=== PATIENT | female | born 1945 | race Caucasian/White ===

== ENCOUNTER 2020-07-25 07:30 | Observation (INO) ==
[2020-07-25] MEDS ORDERED: MORPHINE SULFATE INJ 4 MG IVP ONE (08:00)
[2020-07-25] MEDS ORDERED: MORPHINE SULFATE INJ 2 MG INJ ONE ×2 (08:02→10:15)
--- NOTE | 2020-07-25 08:04 | RAD ---
HISTORYS/P FALL LAST P.M,. LT HIP PAINSTUDYHIP, LEFTCOMPARISONNoneFINDINGSRight superior pubic ramus and parasymphyseal fractures. Left superior and inferior pubic ramus fractures. Large amount of stool throughout the colon.IMPRESSIONBilateral pubic ramus fractures.Electronically signed by: TANMAY VERDUZCO (Jul 25, 2020 08:03:59)
--- NOTE | 2020-07-25 08:34 | DR.EXTPAIN ---
HPI Time seen Time Seen by Provider: 07/25/20 08:07 Complaint/Symptoms Chief Complaint:: PT C/O FALLING AT HOME LAST NIGHT TO THE FLOOR AND HAVING PAIN TO BOTH HER HIPS , PT DRAWING UP LEGS UP UNABLE TO VISUALIZE .. COVID-19 Coronavirus risk:travel/contact w/high risk person: No Has patient experienced Coronavirus symptoms: No Nurses notes reviewed Nurses Notes Review: Yes Source History Provided: Patient Mode of arrival Mode of Arrival: Stretcher Timing Onset of Chief Complaint: 07/25/20 Context History of: None PMH PMH Past Medical History: Yes Past Medical History: Diabetes and Hypertension Past Surgical History: No Family History History of Family Medical Conditions: No Social History Does patient currently use any type of tobacco product: No Have you used tobacco products in the last 12 months: No Type of Tobacco Use: None Does any household member use tobacco: No Alcohol Use: None Do you use any recreational Drugs:: No Lives With: Alone Lives Where: Home Travel Risk Coronavirus risk:travel/contact w/high risk person: No Has patient experienced Coronavirus symptoms: No Infectious screening In the last 2 months have you had wt loss of >10#?: NO Have you had fever, night sweats or hemotysis?: No Have you traveled outside the country in the last 6 months?: No Isolation: Standard ROS Review of Systems Constitutional: No Symptoms Reported Eyes: No Symptoms Reported ENTM: No Symptoms Reported Respiratoy: No Symptoms Reported Cardiovascular: No Symptoms Reported Gastrointestinal/Abdominal: No Symptoms Reported Genitourinary: No Symptoms Reported Neurological: No Symptoms Reported Musculoskeletal: Pelvis (pain bilateral) Integumentary: No Symptoms Reported Hematologic/Lymphatic: No Symptoms Reported Endocrine: No Symptoms Reported Psychiatric: No Symptoms Reported All Other Systems: Reviewed and Negative PE Vital Signs Vitals: Temperature 97.1 F Pulse Rate 86 Respiratory Rate 20 Blood Pressure 127/67 O2 Sat by Pulse Oximetry 95 General Limitations: No Limitations General Appearance: Alert and In No Apparent Distress Head Head Exam: Normal Inspection, Atraumatic and Normocephalic Eyes Eye exam: Normal Appearance and EOMI ENT ENT Exam: Normal Exam and Normal Oropharynx Neck Neck Exam: Normal Inspection and Full ROM Chest Chest Inspection: Normal Inspection Respiratory Respiratory Exam: Normal Lung Sounds Bilat Respiratory Exam: Bilateral: Clear to Auscultation Cardiovascular Cardiovascular Exam: Regular Rate Abdominal Exam Abdominal Exam: Normal Inspection Extremities Extremities Exam: Normal Inspection and Tenderness; negative Full ROM (pain in pelvis with movement) Upper Extremities Shoulder Exam: Normal Inspection Arm Exam: Normal Inspection Elbow Exam: Normal Inspection Forearm Exam: Normal Inspection Lower Extremities Hip/Pelvis Exam: Normal Inspection and Tenderness (pelvic rock positive); negative Full ROM, Swelling, Abrasion, Ecchymosis and Deformity Knee Exam: Normal Inspection Lower Leg Exam: Normal Inspection Ankle Exam: Normal Inspection Neurological Neurological Exam: Alert, Oriented X3 and CN II-XII Intact Psychiatric Psychiatric Exam: Depressed Skin Skin Exam: Normal Color Type of Lesion: negative Rash COURSE Consultation Called: 08:36 Call Returned: 08:36 Consultation Comments: case discussed with DR. Castillo admit for ortho consult and intermediate accountant care. case discussed with DR. Newton recommend pain management and placement for half-way care R[facility] Labs Reviewed Result Diagrams: 07/25/20 08:45 07/25/20 08:45 Opioid Opioid Risk Tool Age (Neftali box if 16-45): No History of Preadolescent Sexual Abuse: No Total: 0 Total Score Risk Category: Low Risk Copyright: Rex DIXON predicting aberrant behaviors
[2020-07-25 09:00] LABS: BASOPHILS % (AUTO) 0.2 % (0.2-1.0); HEMOGLOBIN 9.6 g/dL (12.0-16.0); LYMPHOCYTES # (AUTO) 0.8 X10^3/uL (1.3-2.9); LYMPHOCYTES % (AUTO) 4.1 % (21.0-51.0); MEAN CORPUSCULAR HGB CONC 31.9 g/dL (33.0-35.0); MEAN CORPUSCULAR VOLUME 75.3 fL (80.0-100.0); MEAN PLATELET VOLUME 7.8 fL (7.4-11.0); MONOCYTES # (AUTO) 0.8 x10^3/uL (0.3-0.8); MONOCYTES % (AUTO) 4.1 % (0.0-13.0); NEUTROPHILS # (AUTO) 17.7 x10^3/uL (2.2-4.8); NEUTROPHILS % (AUTO) 91.6 % (42.0-75.0); PLATELET COUNT 542 X10^3/uL (150.0-450.0); RED BLOOD COUNT 3.99 X10^6/uL (3.5-5.4); RED CELL DISTRIBUTION WIDTH 18.5 % (11.6-16.5); WHITE BLOOD COUNT 19.3 X10^3/uL (3.6-10.0)
[2020-07-25 09:07] LABS: ALANINE AMINOTRANSFERASE 21 Units/L (12-78); ALBUMIN 2.8 g/dL (3.4-5.0); ALKALINE PHOSPHATASE 88 Units/L (46-116); ASPARTATE AMINO TRANSFERASE 23 Units/L (15-37); BLOOD UREA NITROGEN 11 mg/dL (7-18); CALCIUM 8.7 mg/dL (8.5-10.1); CARBON DIOXIDE 27.5 mmol/L (21-32); CHLORIDE 102 mmol/L (98-107); COR CA(FOR HYPOALB) 9.7 mg/dL (8.5-10.1); COR NA(FOR HYPERGLY) 138 mmol/L (136-145); CREATININE 0.63 mg/dL (0.55-1.02); SODIUM 137 mmol/L (136-145); TOTAL PROTEIN 7.1 g/dL (6.4-8.2); eGFR NON BLACK RACES > 60 (>60)
[2020-07-25] MEDS ORDERED: POTASSIUM CHLORIDE LIQ 20 MEQ UDC PO ONE (09:21)
--- NOTE | 2020-07-25 09:24 | DR.EXTPAIN ---
HPI Time seen Time Seen by Provider: 07/25/20 08:07 Complaint/Symptoms Chief Complaint:: PT C/O FALLING AT HOME LAST NIGHT TO THE FLOOR AND HAVING PAIN TO BOTH HER HIPS , PT DRAWING UP LEGS UP UNABLE TO VISUALIZE .. COVID-19 Coronavirus risk:travel/contact w/high risk person: No Has patient experienced Coronavirus symptoms: No Source History Provided: Patient Mode of arrival Mode of Arrival: Stretcher Timing Onset of Chief Complaint: 07/25/20 PMH PMH Past Medical History: Yes Past Medical History: Diabetes and Hypertension Past Medical History Comment: CVA LINT RECORDER Past Surgical History: No Family History History of Family Medical Conditions: No Social History Does patient currently use any type of tobacco product: No Have you used tobacco products in the last 12 months: No Type of Tobacco Use: None Does any household member use tobacco: No Alcohol Use: None Do you use any recreational Drugs:: No Lives With: Alone Lives Where: Home Travel Risk Coronavirus risk:travel/contact w/high risk person: No Has patient experienced Coronavirus symptoms: No Infectious screening In the last 2 months have you had wt loss of >10#?: NO Have you had fever, night sweats or hemotysis?: No Have you traveled outside the country in the last 6 months?: No Isolation: Standard PE Vital Signs Vitals: Temperature 97.1 F Pulse Rate 82 Respiratory Rate 20 Blood Pressure 119/57 O2 Sat by Pulse Oximetry 98 ROR Labs Reviewed Result Diagrams: 07/25/20 08:45 07/25/20 08:45 Laboratory: WBC 19.3 X10^3/uL (3.6-10.0) H 07/25/20 08:45 RBC 3.99 X10^6/uL (3.5-5.4) 07/25/20 08:45 Hgb 9.6 g/dL (12.0-16.0) L 07/25/20 08:45 Hct 30.0 % (36.0-47.0) L 07/25/20 08:45 MCV 75.3 fL (80.0-100.0) L 07/25/20 08:45 MCH 24.0 pg (27.0-34.0) L 07/25/20 08:45 MCHC 31.9 g/dL (33.0-35.0) L 07/25/20 08:45 RDW 18.5 % (11.6-16.5) H 07/25/20 08:45 Plt Count 542 X10^3/uL (150.0-450.0) H 07/25/20 08:45 MPV 7.8 fL (7.4-11.0) 07/25/20 08:45 Neut % (Auto) 91.6 % (42.0-75.0) H 07/25/20 08:45 Lymph % (Auto) 4.1 % (21.0-51.0) L 07/25/20 08:45 [place] % (Auto) 4.1 % (0.0-13.0) 07/25/20 08:45 Eos % (Auto) 0.0 % (0.9-2.9) L 07/25/20 08:45 Baso % (Auto) 0.2 % (0.2-1.0) 07/25/20 08:45 Neut # (Auto) 17.7 x10^3/uL (2.2-4.8) H 07/25/20 08:45 Lymph # (Auto) 0.8 X10^3/uL (1.3-2.9) L 07/25/20 08:45 [place] # (Auto) 0.8 x10^3/uL (0.3-0.8) 07/25/20 08:45 Eos # (Auto) 0.0 x10^3/uL (0.0-0.2) 07/25/20 08:45 Baso # (Auto) 0.0 X10^3/uL (0.0-0.1) 07/25/20 08:45 Absolute Nucleated RBC 0.0 /100WBC 07/25/20 08:45 Sodium 137 mmol/L (136-145) 07/25/20 08:45 Corrected Sodium 138 mmol/L (136-145) 07/25/20 08:45 Potassium 3.2 mmol/L (3.5-5.1) L 07/25/20 08:45 Chloride 102 mmol/L (98-107) 07/25/20 08:45 Carbon Dioxide 27.5 mmol/L (21-32) 07/25/20 08:45 BUN 11 mg/dL (7-18) 07/25/20 08:45 Creatinine 0.63 mg/dL (0.55-1.02) 07/25/20 08:45 Est GFR (MDRD) Af Amer > 60 (>60) 07/25/20 08:45 Est GFR (MDRD) Non-Af > 60 (>60) 07/25/20 08:45 Glucose 145 mg/dL (65-99) H 07/25/20 08:45 Calcium 8.7 mg/dL (8.5-10.1) 07/25/20 08:45 Corrected Calcium 9.7 mg/dL (8.5-10.1) 07/25/20 08:45 Total Bilirubin 0.40 mg/dL (0.2-1.0) 07/25/20 08:45 AST 23 Units/L (15-37) 07/25/20 08:45 ALT 21 Units/L (12-78) 07/25/20 08:45 Alkaline Phosphatase 88 Units/L (46-116) 07/25/20 08:45 Total Protein 7.1 g/dL (6.4-8.2) 07/25/20 08:45 Albumin 2.8 g/dL (3.4-5.0) L 07/25/20 08:45 Globulin 4.3 g/dL (2.5-4.5) 07/25/20 08:45 Albumin/Globulin Ratio 0.7 Ratio (1.1-2.1) L 07/25/20 08:45 Opioid Opioid Risk Tool Age (Neftali box if 16-45): No History of Preadolescent Sexual Abuse: No Total: 0 Total Score Risk Category: Low Risk Copyright: Rex DIXON predicting aberrant behaviors
[2020-07-25 09:26] LABS: BAND NEUTROPHILS % 4 % (0-10)
[2020-07-25 09:31] LABS: ANISOCYTOSIS SLIGHT; HYPOCHROMASIA SLIGHT; PLATELET MORPHOLOGY COMMENT NORMAL (NORMAL)
[2020-07-25] MEDS ORDERED: K-DUR TAB 20 MEQ PO ONE (09:34)
[2020-07-25] MEDS: K-DUR TAB 20 MEQ PO SCH (09:46)
[2020-07-25 09:53] LABS: BILIRUBIN,URINE NEGATIVE (NEGATIVE); BLOOD/HEMOGLOBIN,URINE NEGATIVE (NEGATIVE); GLUCOSE, URINE NEGATIVE (NEGATIVE); KETONES,URINE NEGATIVE (NEGATIVE); LEUKOCYTE ESTERASE ,URINE 3+ (NEGATIVE); NITRITES,URINE NEGATIVE (NEGATIVE); PROTEIN,URINE 1+ (NEGATIVE); UROBILINOGEN,URINE NORMAL (NORMAL)
[2020-07-25] MEDS ORDERED: MORPHINE SULFATE INJ 2 MG INJ IVP ONE (10:15)
[2020-07-25 10:28] LABS: APPEARANCE,URINE HAZY (CLEAR); COLOR,URINE YELLOW (YELLOW)
[2020-07-25 10:29] LABS: BACTERIA,URINE TRACE /HPF (NEGATIVE); RBC,URINE 0-2 /HPF (0-3); SQUAMOUS EPITHELIAL CELL,UR FEW /HPF (NEGATIVE)
[2020-07-25 11:28] LABS: CKMB % 11.3 % (<4); CREATINE KINASE 53 Units/L (26-192); TROPONIN I < 0.02 ng/mL (0-1.5)
[2020-07-25] MEDS ORDERED: ELIQUIS PO SCH (11:37)
[2020-07-25] MEDS ORDERED: VALIUM PO ONE (11:46)
[2020-07-25] MEDS ORDERED: NS 1000 ML 1,000 ML IV SCH (12:00)
--- NOTE | 2020-07-25 12:04 | CT ---
HISTORYFX PUBIC RAMUS, FALLSTUDYPELVIS W/O CONCOMPARISONNoneTECHNIQUECT bony pelvis without contrast with sagittal and coronal reformats.Dose reduction techniques including Automated Exposure Control (AEC) and adjustment of mA and kV were utilized.FINDINGSMildly displaced fracture of the left superior pubic ramus acetabular junction. Comminuted left inferior pubic ramus fracture. Mildly displaced fracture of the right superior and inferior pubic rami at the pubic symphysis. Vertically-oriented fracture through the left sacral ala. Bones are osteopenic. Femoral acetabular joints appear anatomic. Garcia catheter in situ. Mild hemorrhage in the pelvis.IMPRESSIONFractures of the right superior and inferior pubic rami at the pubic symphysis. Left inferior pubic ramus and left superior pubic acetabular junction fracture. Left sacral ala fracture. Mild amount of hemorrhage in the dependent left hemipelvis and in the space of retzius anteriorly.Electronically signed by: Donny Manzano (Jul 25, 2020 12:03:36)
--- NOTE | 2020-07-25 12:33 | RAD ---
Chest AP portableIndication: Weakness and dyspneaFINDINGSLeft lung is clear. Loop recorder device projects over the left chest. Heart size is normal. Lungs are hyperinflated. Heart size is prominent with fullness at the right paratracheal region and at the right hilum. Right lower lung atelectasis suspected, with hilar mass possible. CT chest follow-up will be neededIMPRESSION1. Abnormal right lower lung opacity, right hilar opacity and right paratracheal fullness is concerning for underlying neoplasia. CT chest follow-up will be needed2. COPD likely. Heart size is prominent.Electronically signed by: GILBERT CARTER (Jul 25, 2020 12:33:05)
[2020-07-25 13:21] LABS: CKMB % 11.7 % (<4); CREATINE KINASE 47 Units/L (26-192); TROPONIN I < 0.02 ng/mL (0-1.5)
[2020-07-25 13:25] LABS: CREATINE KINASE MB 5.5 ng/mL (0-4.0)
--- NOTE | 2020-07-25 14:45 | DR.H&P ---
H&P - History & Physical for Day of: H&P Date: 07/25/20 - Chief Complaint Chief Complaint: FALL, BILATERAL HIP PAIN - History of Present Illness History of Present Illness: PT IS 74 WF ER ADMISSION WITH CO FALLING LAST PM WITH INTRACTABLE BILATERAL HIP PAIN, CANNOT BEAR WEIGHT. PT REPORTS SHE SLIPPED. PT DENIES ANY "SYNCOPE". PT HAS PMH OF RECENT INCREASED WEAKNESS. 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 PT HAD IMPLANTED LOOP RECORDER. PT'S DAUGHTER REPORTS PT IS PREVIOUS SMOKER, DM ON ORAL MEDICATION AND RECENT CARDIAC CHECK UP WITHOUT ATRIAL FIBRILLATION. PT HAS COPD WITHOUT RESP FAILURE OR USE OF NEBULIZERS OR HOME O2. PT HAD XRAY IN ER REVEALING BILATERAL PELVIC FRACTURES. PT ADMITTED FOR TREATMENT AND EVALUATION OF ACUTE ILLNESS. - Past Medical History Past Medical History: CVA, Diabetes, Hypertension - Past Surgical History Surgical History: Cholecystectomy, Hysterectomy, Tonsillectomy - Family History Family Medical History: Diabetes Mellitus, Coronary Artery Disease - Social History Does patient currently use any type of tobacco product: No Have you used tobacco products in the last 12 months: Yes Type of Tobacco Use: Cigarettes Does any household member use tobacco: No Alcohol Use: None Drug Use: None - Medications Home Medications: Sulfa (Sulfonamide Antibiotics) [SULFA] Allergy (Verified 07/25/20 09:59) sulfamethoxazole [From Bactrim] Allergy (Verified 07/25/20 07:37) trimethoprim [From Bactrim] Allergy (Verified 07/25/20 07:37) CONTINUE taking the following medications apixaban [Eliquis] 5 mg PO BID 07/25/20 [History] aspirin [Aspir-81] 81 mg PO DAILY 07/25/20 [History] megestrol 40 mg PO BID 07/25/20 [History] metformin 500 mg PO BID 07/25/20 [History] metoprolol succinate 50 mg PO DAILY 07/25/20 [History] pravastatin 20 mg PO HS 07/25/20 [History] - Review of Systems Constitutional: Weakness, Malaise Eyes: No Symptoms Reported ENT: No Symptoms Reported Respiratory: No Symptoms Reported Cardiovascular: No Symptoms Reported Gastrointestinal: No Symptoms Reported Genitourinary: No Symptoms Reported Musculoskeletal: Back Pain, Leg Pain Skin: No Symptoms Reported Neurological: Weakness. denies: Numbness, Change in Speech, Confusion, Seizures - Physical Exam Vital Signs: Temperature 97.8 F Pulse Rate [Right Brachial] 88 Pulse Rate 79 Respiratory Rate 20 Blood Pressure [Right Arm] 134/72 Blood Pressure 108/61 O2 Sat by Pulse Oximetry 96 Oriented: Normal Eyes: Normal Ear: Normal Nose: Normal Throat: Dry Respiratory: RLL Diminished, LLL Diminished Cardiovascular: Normal, Other (IMPLANTED LOOP RECORDER, TEMPORARY FOOD SERVICE SALES REPRESENTATIVES) : Normal Auscultation: Bowel Sounds: Normal Palpation: Normal Tenderness: Suprapubic, Mild Skin: Decreased Turgur Musculoskeletal: Right, Left, Hip, Thigh, Back:Thoracic Psychiatric: Anxiety Mood Description: Anxious Affect: Anxious Speech Pattern: Clear, Appropriate - Assessment/Plan (1) Bilateral pubic rami fractures Status: Acute Plan: ADMIT, ORTHO CONSULTATION. PAIN CONTROL, GENTLE IV HYDRATION. BLOOD AND URINE CULTURE, RAPID COVID -. CXR AND EKG ON ADMISISON. CT CHEST DUE TO ABNORMAL CT FINDINGS, OCCULT STOOL. RESP CONSULTATION, VERIFY HOME MEDICATIONS. BS CONTROL (2) Leukocytosis Status: Acute (3) UTI (urinary tract infection) Status: Acute (4) History of CVA (cerebrovascular accident) Status: Acute (5) Diabetes Status: Acute (6) Lung mass Status: Acute - Allergies Allergies/Adverse Reactions: Allergies Allergy/AdvReac Type Severity Reaction Status Date / Time Sulfa (Sulfonamide Allergy Verified 07/25/20 09:59 Antibiotics) [SULFA] sulfamethoxazole Allergy Verified 07/25/20 07:37 [From Bactrim] trimethoprim [From Bactrim] Allergy Verified 07/25/20 07:37
[2020-07-25] MEDS ORDERED: ZANAFLEX PO PRN (14:49)
[2020-07-25] MEDS: PROTONIX INJ 40 MG VIAL IVP SCH (15:10)
[2020-07-25] MEDS: ROCEPHIN VIAL 1 GRAM 1 G in NS 100 ML IV + SPIKE MINIBAG* 100 ML IV SCH (15:20)
[2020-07-25] MEDS ORDERED: PROVENTIL NEB TX 0.083% 2.5MG/ 3ML NEB PRN (16:00)
[2020-07-25] MEDS ORDERED: PROVENTIL NEB TX 0.083% 2.5MG/ 3ML ONE (16:19)
[2020-07-25 17:45] LABS: BASOPHILS % (AUTO) 0.2 % (0.2-1.0); HEMATOCRIT 23.9 % (36.0-47.0); HEMOGLOBIN 7.9 g/dL (12.0-16.0); LYMPHOCYTES # (AUTO) 0.8 X10^3/uL (1.3-2.9); LYMPHOCYTES % (AUTO) 9.9 % (21.0-51.0); MEAN CORPUSCULAR HEMOGLOBIN 24.6 pg (27.0-34.0); MEAN CORPUSCULAR HGB CONC 32.9 g/dL (33.0-35.0); MEAN CORPUSCULAR VOLUME 74.7 fL (80.0-100.0); MEAN PLATELET VOLUME 7.5 fL (7.4-11.0); MONOCYTES # (AUTO) 0.5 x10^3/uL (0.3-0.8); MONOCYTES % (AUTO) 6.6 % (0.0-13.0); NEUTROPHILS # (AUTO) 6.4 x10^3/uL (2.2-4.8); NEUTROPHILS % (AUTO) 83.3 % (42.0-75.0); PLATELET COUNT 415 X10^3/uL (150.0-450.0); RED CELL DISTRIBUTION WIDTH 19.1 % (11.6-16.5); WHITE BLOOD COUNT 7.7 X10^3/uL (3.6-10.0)
[2020-07-25 17:53] LABS: HYPOCHROMASIA SLIGHT; MICROCYTOSIS SLIGHT; PLATELET MORPHOLOGY COMMENT NORMAL (NORMAL)
[2020-07-25 18:20] LABS: CKMB % 12.2 % (<4); CREATINE KINASE 37 Units/L (26-192); TROPONIN I < 0.02 ng/mL (0-1.5)
[2020-07-25 18:22] LABS: CREATINE KINASE MB 4.5 ng/mL (0-4.0)
[2020-07-25] MEDS ORDERED: PRAVACHOL PO ONE (19:31)
[2020-07-25] MEDS ORDERED: MIRALAX POWDER (1 DOSE 17 G) ONE (19:50)
[2020-07-25] MEDS: MIRALAX POWDER (1 DOSE 17 G) PO SCH (20:49)
[2020-07-25] MEDS: PRAVACHOL PO SCH (20:49)
[2020-07-25] MEDS: MORPHINE SULFATE INJ 2 MG INJ IVP PRN (20:50)
[2020-07-25 22:22] LABS: EOSINOPHILS % (AUTO) 0.3 % (0.9-2.9); NEUTROPHILS # (AUTO) 5.7 x10^3/uL (2.2-4.8)
[2020-07-25 22:37] LABS: BASOPHILS % (AUTO) 0.2 % (0.2-1.0); HEMATOCRIT 24.2 % (36.0-47.0); LYMPHOCYTES # (AUTO) 1.1 X10^3/uL (1.3-2.9); LYMPHOCYTES % (AUTO) 14.2 % (21.0-51.0); MEAN CORPUSCULAR HEMOGLOBIN 24.6 pg (27.0-34.0); MEAN CORPUSCULAR HGB CONC 32.9 g/dL (33.0-35.0); MEAN CORPUSCULAR VOLUME 74.6 fL (80.0-100.0); MEAN PLATELET VOLUME 7.5 fL (7.4-11.0); MONOCYTES # (AUTO) 0.6 x10^3/uL (0.3-0.8); MONOCYTES % (AUTO) 8.3 % (0.0-13.0); PLATELET COUNT 407 X10^3/uL (150.0-450.0); RED BLOOD COUNT 3.24 X10^6/uL (3.5-5.4); RED CELL DISTRIBUTION WIDTH 19.2 % (11.6-16.5); WHITE BLOOD COUNT 7.4 X10^3/uL (3.6-10.0)
[2020-07-25 22:53] LABS: HYPOCHROMASIA SLIGHT; MICROCYTOSIS SLIGHT; PLATELET MORPHOLOGY COMMENT NORMAL (NORMAL)
[2020-07-26 01:15] LABS: CKMB % 12.6 % (<4); CREATINE KINASE 35 Units/L (26-192); TROPONIN I < 0.02 ng/mL (0-1.5)
[2020-07-26 01:16] LABS: CREATINE KINASE MB 4.4 ng/mL (0-4.0)
[2020-07-26 06:11] LABS: BASOPHILS % (AUTO) 0.2 % (0.2-1.0); EOSINOPHILS % (AUTO) 0.3 % (0.9-2.9); HEMATOCRIT 24.7 % (36.0-47.0); HEMOGLOBIN 8.2 g/dL (12.0-16.0); MEAN CORPUSCULAR HEMOGLOBIN 24.9 pg (27.0-34.0); MEAN CORPUSCULAR HGB CONC 33.3 g/dL (33.0-35.0); MEAN CORPUSCULAR VOLUME 74.9 fL (80.0-100.0); MEAN PLATELET VOLUME 7.7 fL (7.4-11.0); MONOCYTES # (AUTO) 0.5 x10^3/uL (0.3-0.8); MONOCYTES % (AUTO) 7.4 % (0.0-13.0); NEUTROPHILS # (AUTO) 5.3 x10^3/uL (2.2-4.8); NEUTROPHILS % (AUTO) 78.1 % (42.0-75.0); PLATELET COUNT 409 X10^3/uL (150.0-450.0); WHITE BLOOD COUNT 6.8 X10^3/uL (3.6-10.0)
[2020-07-26 06:20] LABS: BLOOD UREA NITROGEN 8 mg/dL (7-18); CALCIUM 8.3 mg/dL (8.5-10.1); CARBON DIOXIDE 26.1 mmol/L (21-32); CHLORIDE 101 mmol/L (98-107); COR NA(FOR HYPERGLY) 135 mmol/L (136-145); CREATININE 0.59 mg/dL (0.55-1.02); SODIUM 134 mmol/L (136-145); eGFR NON BLACK RACES > 60 (>60)
[2020-07-26] MEDS ORDERED: K-DUR TAB 20 MEQ PO PRN (06:34)
[2020-07-26] MEDS ORDERED: POTASSIUM CHLORIDE LIQ 20 MEQ UDC PO PRN (06:34)
[2020-07-26] MEDS ORDERED: POTASSIUM CHL 40 MEQ/NS 0.45% 500 ML IV PRN (06:34)
[2020-07-26] MEDS ORDERED: MICRO K EXTEN CAP 10 MEQ PO PRN (06:34)
[2020-07-26] MEDS ORDERED: K-RIDER 10 MEQ/NS 100 ML 10 MEQ/100 ML BAG IV PRN (06:34)
[2020-07-26] MEDS ORDERED: POTASSIUM CHL 60 MEQ/NS 0.45% 500 ML IV PRN (06:34)
[2020-07-26] MEDS ORDERED: KLOR-CON PO PRN (06:34)
[2020-07-26 06:38] LABS: MICROCYTOSIS SLIGHT; PLATELET MORPHOLOGY COMMENT NORMAL (NORMAL)
[2020-07-26] MEDS: K-DUR TAB 20 MEQ PO SCH ×2 (09:06→10:32)
[2020-07-26] MEDS: TOPROL XL PO SCH ×2 (09:12→10:30)
[2020-07-26] MEDS: ROCEPHIN VIAL 1 GRAM 1 G in NS 100 ML IV + SPIKE MINIBAG* 100 ML IV SCH (09:17)
[2020-07-26] MEDS: PROTONIX INJ 40 MG VIAL IVP SCH (09:22)
[2020-07-26] MEDS ORDERED: INFeD or DEXFERRUM 25 MG in NS 100 ML IV 100 ML IV NR (11:00)
[2020-07-26] MEDS ORDERED: INFeD or DEXFERRUM 975 MG in NS 500 ML IV 500 ML IV NR (12:00)
[2020-07-26 12:24] LABS: BASOPHILS % (AUTO) 0.3 % (0.2-1.0); EOSINOPHILS % (AUTO) 0.3 % (0.9-2.9); HEMATOCRIT 20.3 % (36.0-47.0); LYMPHOCYTES # (AUTO) 0.7 X10^3/uL (1.3-2.9); LYMPHOCYTES % (AUTO) 8.3 % (21.0-51.0); MEAN CORPUSCULAR HEMOGLOBIN 24.8 pg (27.0-34.0); MEAN CORPUSCULAR HGB CONC 32.9 g/dL (33.0-35.0); MEAN CORPUSCULAR VOLUME 75.5 fL (80.0-100.0); MEAN PLATELET VOLUME 7.7 fL (7.4-11.0); MONOCYTES # (AUTO) 0.7 x10^3/uL (0.3-0.8); MONOCYTES % (AUTO) 8.2 % (0.0-13.0); NEUTROPHILS # (AUTO) 6.7 x10^3/uL (2.2-4.8); NEUTROPHILS % (AUTO) 82.9 % (42.0-75.0); PLATELET COUNT 332 X10^3/uL (150.0-450.0); RED BLOOD COUNT 2.69 X10^6/uL (3.5-5.4); WHITE BLOOD COUNT 8.1 X10^3/uL (3.6-10.0)
[2020-07-26 12:28] LABS: HEMOGLOBIN 6.7 g/dL (12.0-16.0)
[2020-07-26] MEDS ORDERED: NS 250 ML IV 250 ML IV SCH (12:30)
[2020-07-26 12:33] LABS: PLATELET MORPHOLOGY COMMENT NORMAL (NORMAL)
[2020-07-26 12:35] LABS: ANISOCYTOSIS 1+; HYPOCHROMASIA 1+
[2020-07-26] MEDS ORDERED: NS 500 ML IV 500 ML IV ONE (12:55)
[2020-07-26] MEDS ORDERED: TYLENOL 325 MG TAB PO PRN (12:55)
[2020-07-26] MEDS ORDERED: BENADRYL INJ 50 MG VIAL IVP PRN (12:55)
[2020-07-26] MEDS: NS 1000 ML 1,000 ML IV SCH (13:00)
[2020-07-26 15:05] VITALS: BMI 17.5
[2020-07-26] MEDS: PRAVACHOL PO SCH (20:42)
[2020-07-26] MEDS: MIRALAX POWDER (1 DOSE 17 G) PO SCH (20:42)
[2020-07-26] MEDS ORDERED: NS 250 ML IV 250 ML IV ONE (22:36)
[2020-07-27] MEDS: NS 1000 ML 1,000 ML IV SCH ×3 (02:18→18:01)
[2020-07-27 04:57] LABS: BILIRUBIN,URINE NEGATIVE (NEGATIVE); BLOOD/HEMOGLOBIN,URINE NEGATIVE (NEGATIVE); GLUCOSE, URINE NEGATIVE (NEGATIVE); KETONES,URINE NEGATIVE (NEGATIVE); LEUKOCYTE ESTERASE ,URINE NEGATIVE (NEGATIVE); NITRITES,URINE NEGATIVE (NEGATIVE); PROTEIN,URINE NEGATIVE (NEGATIVE); UROBILINOGEN,URINE NORMAL (NORMAL)
[2020-07-27 05:01] LABS: APPEARANCE,URINE CLEAR (CLEAR); COLOR,URINE STRAW (YELLOW)
[2020-07-27 06:10] LABS: BASOPHILS % (AUTO) 0.2 % (0.2-1.0); EOSINOPHILS % (AUTO) 0.6 % (0.9-2.9); HEMATOCRIT 26.6 % (36.0-47.0); LYMPHOCYTES # (AUTO) 0.9 X10^3/uL (1.3-2.9); LYMPHOCYTES % (AUTO) 10.2 % (21.0-51.0); MEAN CORPUSCULAR HEMOGLOBIN 25.7 pg (27.0-34.0); MEAN CORPUSCULAR HGB CONC 33.8 g/dL (33.0-35.0); MEAN CORPUSCULAR VOLUME 75.9 fL (80.0-100.0); MEAN PLATELET VOLUME 8.2 fL (7.4-11.0); MONOCYTES # (AUTO) 0.5 x10^3/uL (0.3-0.8); MONOCYTES % (AUTO) 6.1 % (0.0-13.0); NEUTROPHILS # (AUTO) 7.1 x10^3/uL (2.2-4.8); NEUTROPHILS % (AUTO) 82.9 % (42.0-75.0); PLATELET COUNT 445 X10^3/uL (150.0-450.0); RED CELL DISTRIBUTION WIDTH 19.3 % (11.6-16.5); WHITE BLOOD COUNT 8.5 X10^3/uL (3.6-10.0)
[2020-07-27 06:42] LABS: PLATELET MORPHOLOGY COMMENT NORMAL (NORMAL)
[2020-07-27 06:43] LABS: ALBUMIN 2.3 g/dL (3.4-5.0); ALKALINE PHOSPHATASE 105 Units/L (46-116); BLOOD UREA NITROGEN 5 mg/dL (7-18); CALCIUM 8.2 mg/dL (8.5-10.1); CARBON DIOXIDE 23.8 mmol/L (21-32); CHLORIDE 99 mmol/L (98-107); COR CA(FOR HYPOALB) 9.6 mg/dL (8.5-10.1); COR NA(FOR HYPERGLY) 136 mmol/L (136-145); CREATININE 0.66 mg/dL (0.55-1.02); HYPOCHROMASIA SLIGHT; SODIUM 135 mmol/L (136-145); TOTAL PROTEIN 6.7 g/dL (6.4-8.2); eGFR NON BLACK RACES > 60 (>60)
[2020-07-27 07:05] LABS: ALANINE AMINOTRANSFERASE 20 Units/L (12-78); ASPARTATE AMINO TRANSFERASE 29 Units/L (15-37)
[2020-07-27] MEDS: MORPHINE SULFATE INJ 2 MG INJ IVP PRN (07:29)
[2020-07-27] MEDS: TOPROL XL PO SCH (08:44)
[2020-07-27] MEDS: PROTONIX INJ 40 MG VIAL IVP SCH (08:45)
[2020-07-27] MEDS: K-DUR TAB 20 MEQ PO SCH (08:45)
[2020-07-27] MEDS: ROCEPHIN VIAL 1 GRAM 1 G in NS 100 ML IV + SPIKE MINIBAG* 100 ML IV SCH (08:45)
--- NOTE | 2020-07-27 10:08 | CT ---
HISTORYFall, pelvic fractures, lung opacity on x-raySTUDYCT chest, abdomen and pelvis with IV contrastCOMPARISONChest x-ray 07/25/2020TECHNIQUEMultiple axial images of the chest, abdomen and pelvis were obtained from the lung apices to the pubic symphysis after the administration of IV contrast. 75 cc Omnipaque 350 IV contrast. Dose reduction techniques including Automated Exposure Control (AEC) and adjustment of mA and kV were utilized.FINDINGSBullae and blebs are seen in the lung apices. There is a large mass in the mediastinum located anterior to the anali. It measures 6.5 x 5.0 cm at the anali. It has mass effect upon the lower trachea and mainstem bronchi which are narrowed. Mass appears to extend inferiorly and laterally into the right hilum and right lower lobe of the lungs. The mass measures approximately 6.8 x 5.2 cm at the level of the right main pulmonary artery. There is narrowing of right pulmonary artery branches in the right lower lobe of the lungs. Associated atelectasis is present in the right lower lobe and there is a small right pleural effusion.In the inferior right upper lobe there is ground-glass nodular focus measuring 1.5 by 1.0 cm. This could possibly be spread of malignancy but could be mild atelectasis. Minimal atelectasis is seen dependently in the left lower lobe. Sub mm subpleural left lower lobe lung nodule is seen on image 45 of series 5. Probable scarring is seen in both lung apices. No pneumothorax is seen. There is another small slightly nodular density seen in the right perihilar region anteriorly and inferiorly in the right middle lobe. This measures approximately 7 x 3 mm and could be metastatic disease.Heart and thoracic aorta are normal in size. Abdominal aorta is normal in size with mild diffuse calcifications. No suspicious hepatic lesion is seen. Normal variant diminished enhancement is seen in the bare area of the liver. Prior cholecystectomy with mild pneumobilia. No pancreatic lesion is seen. Spleen is normal in size. No adrenal nodules are seen. Likely benign cysts are seen in both kidneys. Urinary bladder is decompressed with a Garcia catheter. Small amount of urine and excreted contrast is seen in the urinary bladder without evidence of contrast extravasation. Trace free pelvic fluid is low in density.Moderate constipation is seen in the rectosigmoid colon and ascending colon. Normal appendix is seen. Mildly displaced fracture of the body of the right pubic bone is seen with nondisplaced fracture of the right inferior pubic ramus. There is moderately displaced fracture of the left inferior pubic ramus. Bones appear osteopenic. There is nondisplaced fracture of the anterior column of the left acetabulum. No femoral neck fracture or hip dislocation is seen. There is fracture of the left sacral ala that is nondisplaced. No widening of the symphysis pubis or SI joints is seen. No thoracic or lumbar compression fracture is seen. Likely disc bulges at L2-3, L3-4, and L4-5.IMPRESSIONProbable primary lung cancer in the right lower lobe extending into the hilum and mediastinum. There is associated atelectasis of the right lower lobe and small right pleural effusion.Ground-glass focus and another tiny nodular focus are seen in the right lung with tiny nodule in the left lung. Metastatic disease is not excluded.No metastatic disease is seen in the abdomen or pelvis.Multiple pelvic fractures are seen.Moderate constipation.Electronically signed by: Eugene Brito (Jul 27, 2020 10:07:20)
[2020-07-27] MEDS ORDERED: PERCOCET TAB 5/325 MG PO PRN (10:18)
--- NOTE | 2020-07-27 11:49 | CT ---
HISTORYhx cvaSTUDYCT brain without IV contrastCOMPARISONNoneTECHNIQUEMultiple axial images of the brain were obtained without IV contrast. Dose reduction techniques including Automated Exposure Control (AEC) and adjustment of mA and kV were utilized.FINDINGSVisualized portions of the paranasal sinuses and mastoid air cells are clear. No calvarial fracture is seen. No acute intracranial hemorrhage or mass effect is seen. Moderate diffuse volume loss is seen in the brain with compensatory enlargement of the ventricular system. There is likely arachnoid cyst associated with the posterior and inferior aspect of the 4th ventricle. It mildly effaces the 4th ventricle. It measures 1.6 x 1.2 cm. No evidence of acute CVA. Moderate chronic small vessel ischemic changes are suspected in the periventricular white matter.IMPRESSIONModerate chronic small vessel ischemic changes are seen without evidence of acute CVA.There is a likely 1.6 x 1.2 cm arachnoid cyst associated with the inferior aspect of the 4th ventricle with mild mass effect upon the 4th ventricle and vermis. No evidence of CSF obstruction is seen.Electronically signed by: Eugene Brito (Jul 27, 2020 11:48:28)
[2020-07-27] MEDS: MIRALAX POWDER (1 DOSE 17 G) PO SCH (20:41)
[2020-07-27] MEDS: PRAVACHOL PO SCH (20:41)
[2020-07-27] MEDS: COLACE CAP 100 MG PO SCH (20:41)
[2020-07-28 06:23] LABS: BASOPHILS % (AUTO) 0.2 % (0.2-1.0); EOSINOPHILS % (AUTO) 0.2 % (0.9-2.9); HEMATOCRIT 24.2 % (36.0-47.0); HEMOGLOBIN 8.2 g/dL (12.0-16.0); LYMPHOCYTES # (AUTO) 0.9 X10^3/uL (1.3-2.9); LYMPHOCYTES % (AUTO) 8.5 % (21.0-51.0); MEAN CORPUSCULAR HEMOGLOBIN 25.1 pg (27.0-34.0); MEAN CORPUSCULAR HGB CONC 33.9 g/dL (33.0-35.0); MEAN CORPUSCULAR VOLUME 74.2 fL (80.0-100.0); MONOCYTES # (AUTO) 0.5 x10^3/uL (0.3-0.8); MONOCYTES % (AUTO) 4.2 % (0.0-13.0); NEUTROPHILS # (AUTO) 9.7 x10^3/uL (2.2-4.8); NEUTROPHILS % (AUTO) 86.9 % (42.0-75.0); PLATELET COUNT 410 X10^3/uL (150.0-450.0); RED BLOOD COUNT 3.27 X10^6/uL (3.5-5.4); RED CELL DISTRIBUTION WIDTH 19.3 % (11.6-16.5); WHITE BLOOD COUNT 11.2 X10^3/uL (3.6-10.0)
[2020-07-28] MEDS: NS 1000 ML 1,000 ML IV SCH ×2 (06:24→17:50)
[2020-07-28 06:34] LABS: ALKALINE PHOSPHATASE 115 Units/L (46-116); BLOOD UREA NITROGEN 4 mg/dL (7-18); CARBON DIOXIDE 23.7 mmol/L (21-32); CHLORIDE 100 mmol/L (98-107); COR CA(FOR HYPOALB) 9.6 mg/dL (8.5-10.1); COR NA(FOR HYPERGLY) 134 mmol/L (136-145); CREATININE 0.48 mg/dL (0.55-1.02); SODIUM 133 mmol/L (136-145); TOTAL PROTEIN 6.2 g/dL (6.4-8.2); eGFR NON BLACK RACES > 60 (>60)
[2020-07-28 06:48] LABS: ALANINE AMINOTRANSFERASE 20 Units/L (12-78); ASPARTATE AMINO TRANSFERASE 35 Units/L (15-37)
[2020-07-28 07:11] LABS: PLATELET MORPHOLOGY COMMENT NORMAL (NORMAL)
[2020-07-28] MEDS: PROTONIX INJ 40 MG VIAL IVP SCH (08:30)
[2020-07-28] MEDS: ROCEPHIN VIAL 1 GRAM 1 G in NS 100 ML IV + SPIKE MINIBAG* 100 ML IV SCH (08:30)
[2020-07-28] MEDS: K-DUR TAB 20 MEQ PO SCH (08:31)
[2020-07-28] MEDS: TOPROL XL PO SCH (08:31)
--- NOTE | 2020-07-28 12:30 | NM ---
HISTORYBILATERAL HIP FRACTURES, NODULES, POSSIBLE METSSTUDYBONE SCAN WHOLE BODYCOMPARISONCT chest from 07/26/2020[facility] medicine 3 hour delayed whole body bone scan after 24.9 millicuries of technetium 99 M MDP.FINDINGSFocal uptake in the right ankle is either degenerative or posttraumatic. Degenerative type uptake in the shoulders. There is focal uptake in the right anterior 11th and 12th ribs. No other suspicious uptake identified.IMPRESSIONFocal uptake in the right 11th and 12th ribs. CT chest from 07/26/2020 demonstrate small sclerotic lesions in this location. This could be due to metastasis or prior trauma per.Electronically signed by: Donny Manzano (Jul 28, 2020 12:30:15)
[2020-07-28] MEDS: COLACE CAP 100 MG PO SCH (20:32)
[2020-07-28] MEDS: MIRALAX POWDER (1 DOSE 17 G) PO SCH (20:46)
[2020-07-28] MEDS: PRAVACHOL PO SCH (20:47)
[2020-07-29] MEDS: NS 1000 ML 1,000 ML IV SCH ×3 (03:02→17:19)
[2020-07-29 07:09] LABS: ALANINE AMINOTRANSFERASE 19 Units/L (12-78); ALBUMIN 1.9 g/dL (3.4-5.0); ALKALINE PHOSPHATASE 110 Units/L (46-116); ASPARTATE AMINO TRANSFERASE 27 Units/L (15-37); BLOOD UREA NITROGEN 7 mg/dL (7-18); CARBON DIOXIDE 24.5 mmol/L (21-32); CHLORIDE 101 mmol/L (98-107); COR CA(FOR HYPOALB) 9.7 mg/dL (8.5-10.1); COR NA(FOR HYPERGLY) 135 mmol/L (136-145); CREATININE 0.55 mg/dL (0.55-1.02); SODIUM 134 mmol/L (136-145); TOTAL PROTEIN 6.1 g/dL (6.4-8.2); eGFR NON BLACK RACES > 60 (>60)
[2020-07-29 07:24] LABS: BASOPHILS % (AUTO) 0.4 % (0.2-1.0); EOSINOPHILS # (AUTO) 0.1 x10^3/uL (0.0-0.2); EOSINOPHILS % (AUTO) 1.2 % (0.9-2.9); HEMATOCRIT 24.2 % (36.0-47.0); HEMOGLOBIN 8.1 g/dL (12.0-16.0); LYMPHOCYTES % (AUTO) 11.5 % (21.0-51.0); MEAN CORPUSCULAR HEMOGLOBIN 25.5 pg (27.0-34.0); MEAN CORPUSCULAR HGB CONC 33.6 g/dL (33.0-35.0); MONOCYTES # (AUTO) 0.5 x10^3/uL (0.3-0.8); MONOCYTES % (AUTO) 6.5 % (0.0-13.0); NEUTROPHILS # (AUTO) 6.7 x10^3/uL (2.2-4.8); NEUTROPHILS % (AUTO) 80.4 % (42.0-75.0); PLATELET COUNT 436 X10^3/uL (150.0-450.0); RED BLOOD COUNT 3.18 X10^6/uL (3.5-5.4); RED CELL DISTRIBUTION WIDTH 18.6 % (11.6-16.5); WHITE BLOOD COUNT 8.3 X10^3/uL (3.6-10.0)
[2020-07-29 07:41] LABS: PLATELET MORPHOLOGY COMMENT NORMAL (NORMAL)
[2020-07-29] MEDS: PROTONIX INJ 40 MG VIAL IVP SCH (09:03)
[2020-07-29] MEDS: TOPROL XL PO SCH (09:03)
[2020-07-29] MEDS: K-DUR TAB 20 MEQ PO SCH (09:04)
[2020-07-29] MEDS: ROCEPHIN VIAL 1 GRAM 1 G in NS 100 ML IV + SPIKE MINIBAG* 100 ML IV SCH (09:48)
--- NOTE | 2020-07-29 12:10 | RAD ---
HISTORYCONSTIPATION, ABD PAINSTUDYKUBCOMPARISONNoneFINDINGSEvaluation of the abdomen demonstrates a normal bowel gas pattern. There is increased stool in the rectum sigmoid descending colon and splenic flexure. Findings are con sistent with constipation. There is no colonic distention. Surgical clips are seen the right upper qu adrant from cholecystectomy. No pathological soft tissue mass or calcification can be observed. The bony structures are grossly intact.IMPRESSIONIncreased stool in the left colon and rectosigmoid consi stent with constipation without obstruction.Electronically signed by: LUMDILA DONATO (Jul 29, 2020 1 2:09:01)
[2020-07-29] MEDS ORDERED: MILK OF MAGNESIA PO SCH (15:00)
[2020-07-29] MEDS: COLACE CAP 100 MG PO SCH (21:00)
[2020-07-29] MEDS: MILK OF MAGNESIA PO SCH (21:01)
[2020-07-29] MEDS: MIRALAX POWDER (1 DOSE 17 G) PO SCH (21:01)
[2020-07-29] MEDS: PRAVACHOL PO SCH (21:01)
[2020-07-30] MEDS: NS 1000 ML 1,000 ML IV SCH (00:33)
[2020-07-30 06:31] LABS: BASOPHILS % (AUTO) 0.5 % (0.2-1.0); EOSINOPHILS # (AUTO) 0.1 x10^3/uL (0.0-0.2); EOSINOPHILS % (AUTO) 0.8 % (0.9-2.9); HEMATOCRIT 25.9 % (36.0-47.0); HEMOGLOBIN 8.6 g/dL (12.0-16.0); LYMPHOCYTES # (AUTO) 0.7 X10^3/uL (1.3-2.9); LYMPHOCYTES % (AUTO) 9.4 % (21.0-51.0); MEAN CORPUSCULAR HEMOGLOBIN 25.4 pg (27.0-34.0); MEAN CORPUSCULAR VOLUME 76.8 fL (80.0-100.0); MEAN PLATELET VOLUME 7.7 fL (7.4-11.0); MONOCYTES # (AUTO) 0.5 x10^3/uL (0.3-0.8); NEUTROPHILS # (AUTO) 6.5 x10^3/uL (2.2-4.8); NEUTROPHILS % (AUTO) 82.3 % (42.0-75.0); PLATELET COUNT 472 X10^3/uL (150.0-450.0); RED BLOOD COUNT 3.37 X10^6/uL (3.5-5.4); RED CELL DISTRIBUTION WIDTH 19.3 % (11.6-16.5); WHITE BLOOD COUNT 7.9 X10^3/uL (3.6-10.0)
[2020-07-30 06:40] LABS: ALANINE AMINOTRANSFERASE 20 Units/L (12-78); ALBUMIN 2.1 g/dL (3.4-5.0); ALKALINE PHOSPHATASE 118 Units/L (46-116); ASPARTATE AMINO TRANSFERASE 31 Units/L (15-37); BLOOD UREA NITROGEN 5 mg/dL (7-18); CALCIUM 7.9 mg/dL (8.5-10.1); CARBON DIOXIDE 25.7 mmol/L (21-32); CHLORIDE 99 mmol/L (98-107); COR CA(FOR HYPOALB) 9.4 mg/dL (8.5-10.1); COR NA(FOR HYPERGLY) 134 mmol/L (136-145); CREATININE 0.52 mg/dL (0.55-1.02); SODIUM 133 mmol/L (136-145); TOTAL PROTEIN 6.4 g/dL (6.4-8.2); eGFR NON BLACK RACES > 60 (>60)
[2020-07-30 07:32] LABS: PLATELET MORPHOLOGY COMMENT NORMAL (NORMAL)
[2020-07-30] MEDS: K-DUR TAB 20 MEQ PO SCH (09:15)
[2020-07-30] MEDS: TOPROL XL PO SCH (09:15)
[2020-07-30] MEDS: PROTONIX INJ 40 MG VIAL IVP SCH (09:16)
[2020-07-30] MEDS: ROCEPHIN VIAL 1 GRAM 1 G in NS 100 ML IV + SPIKE MINIBAG* 100 ML IV SCH (09:16)
[2020-07-30] MEDS: MILK OF MAGNESIA PO SCH (09:16)
[2020-07-30] MEDS ORDERED: GYLCERIN ADULT SUPP RECTAL NR (14:00)
[2020-07-30 18:54] VITALS: BP 183/87
--- NOTE | 2020-07-31 11:43 | CT ---
HISTORYFall, pelvic fractures, lung opacity on x-raySTUDYCT chest, abdomen and pelvis with IV contrastCOMPARISONChest x-ray 07/25/2020TECHNIQUEMultiple axial images of the chest, abdomen and pelvis were obtained from the lung apices to the pubic symphysis after theadministration of IV contrast. 75 cc Omnipaque 350 IV contrast. Dose reduction techniques including Automated Exposure Control(AEC) and adjustment of mA and kV were utilized.FINDINGSBullae and blebs are seen in the lung apices. There is a large mass in the mediastinum located anterior to the anali. It measures6.5 x 5.0 cm at the anali. It has mass effect upon the lower trachea and mainstem bronchi which are narrowed. Mass appears toextend inferiorly and laterally into the right hilum and right lower lobe of the lungs. The mass measures approximately 6.8 x 5.2 cmat the level of the right main pulmonary artery. There is narrowing of right pulmonary artery branches in the right lower lobe of thelungs. Associated atelectasis is present in the right lower lobe and there is a small right pleural effusion.In the inferior right upper lobe there is ground-glass nodular focus measuring 1.5 by 1.0 cm. This could possibly be spread ofmalignancy but could be mild atelectasis. Minimal atelectasis is seen dependently in the left lower lobe. Sub mm subpleural leftlower lobe lung nodule is seen on image 45 of series 5. Probable scarring is seen in both lung apices. No pneumothorax is seen.There is another small slightly nodular density seen in the right perihilar region anteriorly and inferiorly in the right middle lobe. Thismeasures approximately 7 x 3 mm and could be metastatic disease.Heart and thoracic aorta are normal in size. Abdominal aorta is normal in size with mild diffuse calcifications. No suspicious hepaticlesion is seen. Normal variant diminished enhancement is seen in the bare area of the liver. Prior cholecystectomy with mildpneumobilia. No pancreatic lesion is seen. Spleen is normal in size. No adrenal nodules are seen. Likely benign cysts are seen inboth kidneys. Urinary bladder is decompressed with a Garcia catheter. Small amount of urine and excreted contrast is seen in theurinary bladder without evidence of contrast extravasation. Trace free pelvic fluid is low in density.Moderate constipation is seen in the rectosigmoid colon and ascending colon. Normal appendix is seen. Mildly displaced fracture ofthe body of the right pubic bone is seen with nondisplaced fracture of the right inferior pubic ramus. There is moderately displacedfracture of the left inferior pubic ramus. Bones appear osteopenic. There is nondisplaced fracture of the anterior column of the leftacetabulum. No femoral neck fracture or hip dislocation is seen. There is fracture of the left sacral ala that is nondisplaced. Nowidening of the symphysis pubis or SI joints is seen. No thoracic or lumbar compression fracture is seen. Likely disc bulges at L2-3,L3-4, and L4-5.IMPRESSIONProbable primary lung cancer in the right lower lobe extending into the hilum and mediastinum. There is associated atelectasis ofthe right lower lobe and small right pleural effusion.Electronically signed by: Eugene Brito (Jul 31, 2020 11:42:17)
== END 2020-07-30 17:15 | disposition home health service (06) ==
LOC: MED/SURG 07:30 → ER 07:30 → MED/SURG 09:57
PROVIDERS: ADMIT Internal Medicine; ATTEND Internal Medicine
DX: Z20.828 Contact with and (suspected) exposure to other viral communicable diseases; C79.9 Secondary malignant neoplasm of unspecified site; S32.592A Other specified fracture of left pubis, initial encounter for closed fracture; R26.89 Other abnormalities of gait and mobility; Y92.9 Unspecified place or not applicable; D72.828 Other elevated white blood cell count; I95.89 Other hypotension; J44.1 Chronic obstructive pulmonary disease with (acute) exacerbation; Z86.73 Personal history of transient ischemic attack (TIA), and cerebral infarction without residual deficits; Z79.01 Long term (current) use of anticoagulants; G93.0 Cerebral cysts; S32.591A Other specified fracture of right pubis, initial encounter for closed fracture; W18.30XA Fall on same level, unspecified, initial encounter; N39.0 Urinary tract infection, site not specified; E11.65 Type 2 diabetes mellitus with hyperglycemia; I10 Essential (primary) hypertension; C34.90 Malignant neoplasm of unspecified part of unspecified bronchus or lung